=== PATIENT | male | born 1995 | race Caucasian/White ===

== ENCOUNTER 2017-04-29 02:28 | Emergency (ER) | payer MEDICAID ==
[~2017-04-29] VITALS: Ht 160 cm; Wt 119.3 kg
[2017-04-29 04:04] VITALS: BP 139/83
== END 2017-04-29 04:04 | disposition home or self-care (01) ==
LOC: ED 02:28
DX: R10.9 Unspecified abdominal pain (principal); J45.909 Unspecified asthma, uncomplicated